=== PATIENT | female | born 1975 | race Caucasian/White ===

== ENCOUNTER → 2024-10-26 | Day surgery (SDC) | payer BC ==
[~2024-10-26] MED LIST: ACETAMINOPHEN 1000 MG/100 ML 100 ML IV ONE; DEXAMETHASONE SOD PHOS INJ 4 MG/ML SDV ONE; FAMOTIDINE 20 MG/2 ML VIAL IV ONE; FENTANYL CITRATE/PF 100MCG/2 ML INJ ONE; LIDOCAINE HCL (LTA) 4 ML SOLN ONE; LIDOCAINE HCL 2% LOCAL INJ 5 ML SDV VIAL INJ ONE; METOCLOPRAMIDE HCL 10 MG/2ML VIAL ONE; MIDAZOLAM HCL 2 MG/2 ML VIAL ONE; ONDANSETRON HCL INJ 2MG/ML 2ML 2 MG/ML VIAL ONE; PROPOFOL IV EMULSION 10 MG/ML 20 ML VIAL ONE; ROCURONIUM BROMIDE 1 ML IV ONE; SEVOFLURANE INHAL SOLN 250 ML PEN BTL ONE; SUCCINYLCHOLINE CHLORIDE 20 MG/ML 10ML VIAL ONE; VENTOLIN HFA18 GM INH; VITAMIN D PO; ZEPBOUND7.5 MG/0.5 INJ
[2024-10-26] MEDS: LACTATED RINGER'S 1,000 ML ONE (08:04)
[2024-10-26 10:12] VITALS: TEMP 97.2
[2024-10-26 11:00] VITALS: BP 112/49; PULSE 69; RESP 16; O2SAT 95
== END | disposition home or self-care (01) ==
LOC: OR 07:15
PROVIDERS: ATTEND Otolaryngology Otolaryngology/Facial Plastic Surgery
DX: J38.2 Nodules of vocal cords (principal); R49.0 Dysphonia; R49.8 Other voice and resonance disorders; C55 Malignant neoplasm of uterus, part unspecified; C53.9 Malignant neoplasm of cervix uteri, unspecified; C56.9 Malignant neoplasm of unspecified ovary; G47.33 Obstructive sleep apnea (adult) (pediatric); J45.909 Unspecified asthma, uncomplicated; E66.01 Morbid (severe) obesity due to excess calories; G89.29 Other chronic pain; N28.1 Cyst of kidney, acquired; F41.9 Anxiety disorder, unspecified; Z88.0 Allergy status to penicillin; Z88.7 Allergy status to serum and vaccine; Z79.890 Hormone replacement therapy; Z79.85 Long-term (current) use of injectable non-insulin antidiabetic drugs; Z79.899 Other long term (current) drug therapy; Z86.16 Personal history of COVID-19; Z86.19 Personal history of other infectious and parasitic diseases
CPT/HCPCS: 31541; 31622; 43191; 88305; J0131; J0330; J1100; J2003; J2405; J2704; J2765; J3010; J7121; 88304; J2250